=== PATIENT | male | born 1965 | race Caucasian/White ===

== ENCOUNTER 2023-01-29 08:22 | Emergency (ER) | payer BC | END 2023-01-29 10:41 | disposition home or self-care (01) | LOC: MW.ED 08:22 | DX: M79.604 Pain in right leg (principal); M79.89 Other specified soft tissue disorders; M25.461 Effusion, right knee; I10 Essential (primary) hypertension; Z79.899 Other long term (current) drug therapy; X50.1XXA Overexertion from prolonged static or awkward postures, initial encounter | CPT/HCPCS: 73562-26-RT; 73562-RT; 93971-26-RT; 93971-RT; 99283; 99284 ==

== ENCOUNTER 2023-02-06 08:20 | Day surgery (SDC) | payer BC ==
[~2023-02-06 08:20] MED LIST: Lactated Ringers 1,000 ML IV SCH
[2023-02-06] MEDS ORDERED: Lidocaine 2% 5 ML SDV ONE (09:54)
[2023-02-06] MEDS ORDERED: Propofol 200 MG/20 ML SDV ONE ×2 (09:55→10:17)
[2023-02-06] MEDS ORDERED: Lactated Ringers 1,000 ML IV SCH (10:45)
== END 2023-02-06 11:10 | disposition home or self-care (01) ==
LOC: MW.SDS 08:20
PROVIDERS: ATTEND Surgery
DX: Z12.11 Encounter for screening for malignant neoplasm of colon (principal); K57.30 Diverticulosis of large intestine without perforation or abscess without bleeding; I10 Essential (primary) hypertension; G47.30 Sleep apnea, unspecified; N40.0 Benign prostatic hyperplasia without lower urinary tract symptoms; E66.01 Morbid (severe) obesity due to excess calories; Z68.43 Body mass index [BMI] 50.0-59.9, adult; Z79.899 Other long term (current) drug therapy; Z98.890 Other specified postprocedural states; Z87.891 Personal history of nicotine dependence; Z80.0 Family history of malignant neoplasm of digestive organs
CPT/HCPCS: 45378; J2704; J7120; 00812; J3490